=== PATIENT | female | born 1940 | race Caucasian/White ===

== ENCOUNTER → 2017-09-09 | Outpatient (CLI) | payer MEDICARE | END | disposition home or self-care (01) | LOC: SHCH 09:25 | PROVIDERS: ATTEND Internal Medicine Cardiovascular Disease | DX: I25.10 Atherosclerotic heart disease of native coronary artery without angina pectoris (principal); I65.23 Occlusion and stenosis of bilateral carotid arteries | CPT/HCPCS: 93880 ==

== ENCOUNTER → 2017-09-27 | Outpatient (CLI) | payer MEDICARE | LOC: OIH 09:28 | PROVIDERS: ATTEND Anesthesiology Pain Medicine | DX: M43.16 Spondylolisthesis, lumbar region (principal) | CPT/HCPCS: 72114; 72220 ==

== ENCOUNTER → 2018-06-03 | Outpatient (CLI) | payer MEDICARE | END | disposition home or self-care (01) | LOC: RAH 12:52 | PROVIDERS: ATTEND Orthopaedic Surgery | DX: M47.896 Other spondylosis, lumbar region (principal); M48.062 Spinal stenosis, lumbar region with neurogenic claudication; K57.90 Diverticulosis of intestine, part unspecified, without perforation or abscess without bleeding; M51.27 Other intervertebral disc displacement, lumbosacral region | CPT/HCPCS: 72131 ==

== ENCOUNTER 2018-07-05 06:00 | Day surgery (SDC) | payer MEDICARE, OTHER ==
[2018-06-28 13:33] VITALS: BP 133/64
[~2018-07-05] VITALS: Ht 160 cm; Wt 54.9 kg
[2018-07-05] VITALS (10 sets, daily range): BP systolic 126–144; BP diastolic 39–53
[~2018-07-05 06:00] MED LIST: AMLO10TA4 PO; ATOR10TA69 PO; CARV25TA PO; LEVE500T8 PO; LEVO50TA6 PO; METF-444 PO; ROPI1TAB38 PO; TRAM50TA4 PO; UBID200C37 PO; VALS1TAB81 PO
[2018-07-05] MEDS ORDERED: ISOVUE-M 200 20 ML VIAL IT ONE (07:00)
[2018-07-05] MEDS ORDERED: ALBUMIN (HUMAN) 25% 200 ML IV SCH (07:00)
[2018-07-05] MEDS ORDERED: ASPI-1012 PO (07:23)
[2018-07-05 08:16] LABS: APPEARANCE,CSF CLEAR (CLEAR); COLOR,CSF COLORLESS (COLORLESS); CSF TOTAL VOLUME 1.5 mL; CSF TUBE NUMBER 1
[2018-07-05 08:18] LABS: RED BLOOD CELL1,CSF 0 CMM (0-0); WHITE BLOOD CELL1,CSF 0 CMM (0-5)
== END 2018-07-05 11:40 | disposition home or self-care (01) ==
LOC: DAH 06:00
PROVIDERS: ATTEND Neurological Surgery
DX: M48.061 Spinal stenosis, lumbar region without neurogenic claudication (principal); Z95.0 Presence of cardiac pacemaker; E78.5 Hyperlipidemia, unspecified; I10 Essential (primary) hypertension; E03.9 Hypothyroidism, unspecified; Z98.890 Other specified postprocedural states; Z79.01 Long term (current) use of anticoagulants; Z79.899 Other long term (current) drug therapy
CPT/HCPCS: 62304; 72132; 82948; 89051; A4606; P9046; Q9966

== ENCOUNTER → 2018-09-30 | Outpatient (CLI) | payer MEDICARE, OTHER ==
[~2018-09-30] MED LIST changes: -AMLO10TA4 PO; +APIX5TAB PO; +ASPI-1005 PO; +BETA1TAB20 PO; +CALC-190 PO; +COLON CARE PO; +CYAN250010 PO; +FISH OIL PO; +LOSA100T58 PO; +OMEP20TA2 PO; +SOTA80TA PO; -UBID200C37 PO; -VALS1TAB81 PO; +VITA1TAB22 PO; +VITAMIN B6 PO
== END | disposition home or self-care (01) ==
LOC: OIH 09:55
PROVIDERS: ATTEND Neurological Surgery
DX: M47.816 Spondylosis without myelopathy or radiculopathy, lumbar region (principal); M48.061 Spinal stenosis, lumbar region without neurogenic claudication
CPT/HCPCS: 72100

== ENCOUNTER → 2018-10-20 | Outpatient (CLI) | payer MEDICARE ==
[~2018-10-20] MED LIST changes: +REGADENOSON 0.4 MG/5 ML PF SYG IVP SCH
== END | disposition home or self-care (01) ==
LOC: SHCH 08:47
PROVIDERS: ATTEND Internal Medicine Cardiovascular Disease
DX: I25.10 Atherosclerotic heart disease of native coronary artery without angina pectoris (principal)
CPT/HCPCS: 78452; 93017; 96374; A9500 ×2; J2785

== ENCOUNTER → 2019-11-03 | Outpatient (CLI) | payer MEDICARE, OTHER ==
[~2019-11-03] MED LIST changes: +LEVE-43 PO; -LEVE500T8 PO; -REGADENOSON 0.4 MG/5 ML PF SYG IVP SCH
== END | disposition home or self-care (01) ==
LOC: SHCH 07:59
PROVIDERS: ATTEND Internal Medicine Cardiovascular Disease
DX: I65.23 Occlusion and stenosis of bilateral carotid arteries (principal)
CPT/HCPCS: 93880

== ENCOUNTER 2020-04-08 14:02 | Emergency (ER) | payer MEDICARE, OTHER | END 2020-04-08 15:08 | disposition home or self-care (01) | LOC: EDH 14:02 | DX: S80.211A Abrasion, right knee, initial encounter (principal); E11.9 Type 2 diabetes mellitus without complications; I10 Essential (primary) hypertension; E78.5 Hyperlipidemia, unspecified; Z87.891 Personal history of nicotine dependence; Z88.3 Allergy status to other anti-infective agents; X58.XXXA Exposure to other specified factors, initial encounter; Y93.89 Activity, other specified; Y92.89 Other specified places as the place of occurrence of the external cause; Y99.8 Other external cause status | CPT/HCPCS: 99281 ==